=== PATIENT | female | born 1970 | race African-American/Black ===

== ENCOUNTER 2023-12-31 13:58 | Emergency (ER) | payer OTHER ==
[2023-12-31 14:05] VITALS: BP 138/81; PULSE 77; RESP 20; TEMP 98.2; BMI 49.2
[2023-12-31] MEDS ORDERED: ACETAMINOPHEN 500 MG TABLET (FP) ONE (15:18)
[2023-12-31] MEDS: ACETAMINOPHEN 500 MG TABLET (FP) PO ONE (15:21)
== END 2023-12-31 17:01 | disposition home or self-care (01) ==
LOC: JERFT 13:58
DX: S46.201A Unspecified injury of muscle, fascia and tendon of other parts of biceps, right arm, initial encounter (principal); X50.1XXA Overexertion from prolonged static or awkward postures, initial encounter
CPT/HCPCS: 73060-TC-RT-FY; 73070-TC-RT-FY; 73090-TC-RT-FY; 99283-25